=== PATIENT | female | born 1985 | race African-American/Black ===

== ENCOUNTER 2016-09-07 15:21 | Emergency (ER) | payer OTHER, SELFPAY ==
--- NOTE | 2016-09-07 16:51 | ERRECORD ---
[facility] EMERGENCY RECORD HPI FALL (16:38 PMYE) CHIEF COMPLAINT: Patient presents for evaluation of fall. HISTORIAN: History provided by patient. LOCATION: Symptoms are localized, most severe to left lower extremity. QUALITY: Pain is sharp in nature. TIME COURSE: Sudden onset of symptoms. SEVERITY: Maximum severity of symptoms mild, Currently symptoms are mild. ASSOCIATED WITH: 30 y/o F s/p fall in a driveway in which she landed on her left side. pain from prox tib to great toe. No injury to head or neck. EXACERBATED BY: Patient's condition exacerbated by nothing. RELIEVED BY: Patient's condition relieved by nothing. ROS (16:41 PMYE) CONSTITUTIONAL: Negative constitutional review of systems, Historian denies chills, denies fatigue, denies fever. EYES: Negative eye review of systems, Historian denies eye pain, denies eye redness, denies eye discharge. ENT: Negative ears, nose, throat review of systems, Historian denies dysphasia, denies epistaxis, denies otalgia, denies sore throat. CARDIOVASCULAR: Negative cardiovascular review of systems, Historian denies chest pain, denies dyspnea on exertion, denies syncope, denies palpitations. RESPIRATORY: Negative respiratory review of systems, Historian denies cough, denies shortness of breath, denies wheezing. GI: Negative gastrointestinal review of systems, Historian denies abdominal pain, denies constipation, denies diarrhea, denies nausea, denies vomiting. GENITOURINARY FEMALE: Negative genitourinary review of systems, Historian denies dysuria, denies urgency, denies vaginal bleeding, denies vaginal discharge. MUSCULOSKELETAL: Historian denies arthralgias, denies myalgias. lower extremity pain. SKIN: Negative skin review of systems, Historian denies rash, denies skin changes. NEUROLOGIC: Negative neurologic review of systems, Historian denies confusion, denies focal weakness, denies headache. PSYCHIATRIC: Negative psychiatric review of systems. PAST MEDICAL HISTORY (15:41 BDON) MEDICAL HISTORY: Notes: Deep vein Thrombosis, intersitital cystitis,, Flu vaccine up to date, Tetanus not up to date, Past medical history includes gastrointestinal disease, gastroesophageal reflux disease, Past medical history includes pulmonary disease, asthma. FEMALE SURGICAL HISTORY: Polyps, Surgical history of section. PSYCHIATRIC HISTORY: Psychiatric history includes, &a-1R&a+25V*p+0X*i9893W*c202B*c15G*c2P*p-0X&a-25V&a+1R Name: Rosibel Vera : 1985 F30 MedRec: [id number] AcctNum: [id number] Prepared: Marleny Sep 07, 2016 20:09 by Interface Page 1 of 3 pMD [facility] EMERGENCY RECORD anxiety, depression. SOCIAL HISTORY: Patient denies alcohol use, Patient denies drug use, Patient has no smoking history, Lives at home, with family. KNOWN ALLERGIES Ceftin: Reaction: Rash iodine topical solution latex gloves sulfur Toradol: - halluniations CURRENT MEDICATIONS montelukast: TABLET : Strength - 10 mg : ORAL Patient Dose: once a day. (15:31 BDON) cetirizine: TABLET : Strength - 10 mg : ORAL Patient Dose: once a day (at bedtime). (15:31 BDON) Advair HFA: HFA AEROSOL WITH ADAPTER (GRAM) : Strength - 45 mcg-21 mcg/actuation : INHALATION Patient Dose: Unknown. (15:32 BDON) albuterol sulfate: VIAL, NEBULIZER (ML) : Strength - 1.25 mg/3 mL : INHALATION Patient Dose: Unknown. (15:34 BDON) EPINEPHrine: AUTO-INJECTOR (EA) : Strength - 0.15 mg/0.15 mL (1:1,000) : INJECTION Patient Dose: Unknown. (15:34 BDON) citalopram: TABLET : Strength - 10 mg : ORAL Patient Dose: once a day. (15:35 BDON) Xarelto: TABLET : Strength - 20 mg : ORAL Patient Dose: once a day. (15:36 BDON) Elmiron: CAPSULE : Strength - 100 mg : ORAL Patient Dose: 3 times a day. (15:36 BDON) Vesicare: TABLET : Strength - 5 mg : ORAL Patient Dose: once a day. (15:37 BDON) levocetirizine: TABLET : Strength - 5 mg : ORAL Patient Dose: once a day. (15:37 BDON) VITAL SIGNS VITAL SIGNS: BP: 119/78, Pulse: 69, Resp: 17, Temp: 98.1 (Oral), Pain: 10, O2 sat: 99, Time: 09/07/2016 15:26. (15:26 BDON) Pulse: 84, Resp: 18, Pain: 5, Time: 09/07/2016 16:47. (16:47 BDON) PHYSICAL EXAM (16:41 PMYE) &a-1R&a+25V*p+0X*p0690O*c202B*c15G*c2P*p-0X&a-25V&a+1R Name: Rosibel Vera : 1985 F30 MedRec: [id number] AcctNum: [id number] Prepared: Marleny Sep 07, 2016 20:09 by Interface Page 2 of 3 pMD [facility] EMERGENCY RECORD CONSTITUTIONAL: Vital Signs Reviewed, Patient afebrile, Pulse normal, Blood pressure normal, Respiratory rate normal, Patient appears non toxic. HEAD: Head exam included findings of head atraumatic, normocephalic. EYES: Eye exam included findings of eyelids normal to inspection, Pupils equally round and reactive to light, Extraocular muscles intact. ENT: ENT exam normal, Pharynx exam normal, Uvula exam normal, Tonsil exam normal. NECK: Neck exam normal. RESPIRATORY CHEST: Respiratory and chest exam normal, Breath sounds clear, No wheezing, No rales. ABDOMEN FEMALE: Abdominal exam normal, Abdominal exam included findings of abdomen nontender, Bowel sounds normal. BACK: Back exam normal. LOWER EXTREMITY: Palp pain to prox tibia. Lat left ankle and dorsum of foot. No obvious injury noted. NEURO: Neuro exam normal, [place] coma scale 15, Neuro exam findings include patient oriented to person, place and time, Speech normal. SKIN: Skin exam normal. PSYCHIATRIC: Psychiatric exam normal, Psychiatric exam included findings of patient oriented to person place and time, Normal affect. DOCTOR NOTES TEXT: X-rays negative. Pt w/ likely soft tissue injury from fall. Will f/u w/ PCP. (16:42 PMYE) X rays negative. appropriate for DC w/ PCP f/u. (18:46 PMYE) PROBLEM LIST No recorded problems DIAGNOSIS (16:44 PMYE) FINAL: PRIMARY: fall, ADDITIONAL: lower extremity contusion. PRESCRIPTION No recorded prescriptions DISPOSITION PATIENT: Disposition Type: Discharge, Disposition: *Discharge Home, Condition: Good. (16:44 PMYE) Patient left the department. (16:52 BDON) Hutchinson: BDON=GERRY Cunha, Mona PMYE=DO Silva Paul &a-1R&a+25V*p+0X*u5304R*c202B*c15G*c2P*p-0X&a-25V&a+1R Name: Rosibel Vera : 1985 F30 MedRec: [id number] AcctNum: [id number] Prepared: Marleny Sep 07, 2016 20:09 by Interface Page 3 of 3 pMD MTDD
--- NOTE | 2016-09-07 16:57 | PICIS ---
[facility] EMERGENCY RECORD TRIAGE (15:28 BDON) TRIAGE NOTES: Fell on left side, pain knee into 1st toe. (15:28 BDON) PATIENT: AGE: 30, GENDER: female, : Thu1985, TIME OF GREET: Sun Sep 07, 2016 15:22, ECODE BILLING MAP: [facility], Zip Code: [address], KG WEIGHT: 92.99, PHONE: , , , PERSON ID: [id number], PCP: out of town. (15:28 BDON) NAME: Chuy Rosibelthomas Grant (15:54) COMPLAINT: Fall/Left Leg Pain. (15:37 EPIE) ADMISSION: URGENCY: 3 Urgent, ADMISSION SOURCE: Home, TRANSPORT: Walk-in, BED: TRIAGE. (15:28 BDON) ASSESSMENT: Assessment: Fell while walking, slipped on plate in parking lot, slid on payment placing all weight on left side. Pain below knee into left great toe, Symptoms began 30 min ago. (15:41 BDON) PAIN: Pain is constant. (15:41 BDON) LMP: Last menstrual period: 08/12/2016. (15:41 BDON) TREATMENTS IN PROGRESS: Treatments given Prehospital: none. (15:41 BDON) PROVIDERS: TRIAGE NURSE: Mona Cunha RN. (15:28 BDON) VITAL SIGNS: BP 119/78, Pulse 69, Resp 17, Temp 98.1, (Oral), Pain 10, O2 Sat 99, Time 09/07/2016 15:26. (15:26 BDON) KNOWN ALLERGIES Ceftin: Reaction: Rash iodine topical solution latex gloves sulfur Toradol: - halluniations CURRENT MEDICATIONS montelukast: TABLET : Strength - 10 mg : ORAL Patient Dose: once a day. (15:31 BDON) cetirizine: TABLET : Strength - 10 mg : ORAL Patient Dose: once a day (at bedtime). (15:31 BDON) Advair HFA: HFA AEROSOL WITH ADAPTER (GRAM) : Strength - 45 mcg-21 mcg/actuation : INHALATION Patient Dose: Unknown. (15:32 BDON) albuterol sulfate: VIAL, NEBULIZER (ML) : Strength - 1.25 mg/3 mL : INHALATION Patient Dose: Unknown. (15:34 BDON) EPINEPHrine: AUTO-INJECTOR (EA) : Strength - 0.15 mg/0.15 mL (1:1,000) : INJECTION Patient Dose: Unknown. (15:34 BDON) citalopram: TABLET : Strength - 10 mg : ORAL &a-1R&a+25V*p+0X*i0151Q*c202B*c15G*c2P*p-0X&a-25V&a+1R Name: Rosibel Vear : 1985 F30 MedRec: [id number] AcctNum: [id number] Prepared: Marleny Sep 07, 2016 20:15 by Interface Page 1 of 5 pMD [facility] EMERGENCY RECORD Patient Dose: once a day. (15:35 BDON) Xarelto: TABLET : Strength - 20 mg : ORAL Patient Dose: once a day. (15:36 BDON) Elmiron: CAPSULE : Strength - 100 mg : ORAL Patient Dose: 3 times a day. (15:36 BDON) Vesicare: TABLET : Strength - 5 mg : ORAL Patient Dose: once a day. (15:37 BDON) levocetirizine: TABLET : Strength - 5 mg : ORAL Patient Dose: once a day. (15:37 BDON) VITAL SIGNS VITAL SIGNS: BP: 119/78, Pulse: 69, Resp: 17, Temp: 98.1 (Oral), Pain: 10, O2 sat: 99, Time: 09/07/2016 15:26. (15:26 BDON) Pulse: 84, Resp: 18, Pain: 5, Time: 09/07/2016 16:47. (16:47 BDON) NURSING ASSESSMENT: EXTREMITY LOWER (15:47 BDON) CONSTITUTIONAL: Patient arrives, via hospital wheelchair, History obtained from patient, Patient appears, uncomfortable, Patient cooperative, Patient alert, Oriented to person, place and time, Skin warm, Skin dry, Skin normal in color. PAIN: to the left lower leg. LEFT LOWER EXTREMITY: Left lower extremity assessment findings include capillary refill less than 2 seconds, Skin color normal, Skin temperature warm, Distal sensation intact, Inspection findings include no swelling, Notes: discoloration to great toe tender to palpate lower leg. SAFETY: Cart/Stretcher in lowest position, Hospital ID band on, Patient in view of the nursing station. NURSING PROCEDURE: DISCHARGE NOTE (16:47 BDON) DISCHARGE: Patient discharged to home, ambulating without assistance, driving self, Summary of Care printed/ provided, Patient requested and was provided an electronic copy of Discharge Instructions, Transition record given to patient, Discharge instructions given to patient, Simple or moderate discharge teaching performed, Patient treated and evaluated by physician. VITAL SIGNS: Pulse: 84, Resp: 18, Pain: 5. NURSING PROCEDURE: NURSE NOTES NURSES NOTES: Notes: Remains in Imaging Department. (16:14 BDON) Patient is awaiting results, Notes: Return to room. (16:18 BDON) NURSING PROCEDURE: TRANSPORT TO TESTS (16:44 KPEA) TRANSPORT TO TESTS: Patient transported to x-ray, Accompanied by &a-1R&a+25V*p+0X*i9339T*c202B*c15G*c2P*p-0X&a-25V&a+1R Name: Chuy Rosibel R : 1985 F30 MedRec: [id number] AcctNum: [id number] Prepared: Marleny Sep 07, 2016 20:15 by Interface Page 2 of 5 pMD [facility] EMERGENCY RECORD x-ray unit technician, Patient arrived in location at 1551, Patient departed location at 1615. ORDER DETAILS Order Name: XR Ankle Lt 3 View STANDARD, Status: Active, Time: 15:47 09/07/2016, User: FRANCESCA, - Ordered for: DO Silva Paul, - Entered by: DO Silva Paul - Marleny Sep 07, 2016 15:47, - Quantity: 1, Order Name: XR Foot Lt 3 View STANDARD, Status: Active, Time: 15:47 09/07/2016, User: FRANCESCA, - Ordered for: DO Silva Paul, - Entered by: DO Silva Paul - Sun Sep 07, 2016 15:47, - Quantity: 1, Order Name: XR Knee Lt 2 View, Status: Active, Time: 16:32 09/07/2016, User: FRANCESCA, - Ordered for: DO Silva Paul, - Entered by: DO Silva Paul - Marleny Sep 07, 2016 16:32, - Quantity: 1, Order Name: XR Tib Fib Lt Leg 2 View, Status: Active, Time: 15:47 09/07/2016, User: PMYE, - Ordered for: DO Silva Paul, - Entered by: DO Silva Paul - Marleny Sep 07, 2016 15:47, - Quantity: 1. HPI FALL (16:38 PMYE) CHIEF COMPLAINT: Patient presents for evaluation of fall. HISTORIAN: History provided by patient. LOCATION: Symptoms are localized, most severe to left lower extremity. QUALITY: Pain is sharp in nature. TIME COURSE: Sudden onset of symptoms. SEVERITY: Maximum severity of symptoms mild, Currently symptoms are mild. ASSOCIATED WITH: 30 y/o F s/p fall in a driveway in which she landed on her left side. pain from prox tib to great toe. No injury to head or neck. EXACERBATED BY: Patient's condition exacerbated by nothing. RELIEVED BY: Patient's condition relieved by nothing. ROS (16:41 PMYE) CONSTITUTIONAL: Negative constitutional review of systems, Historian denies chills, denies fatigue, denies fever. EYES: Negative eye review of systems, Historian denies eye pain, denies eye redness, denies eye discharge. ENT: Negative ears, nose, throat review of systems, Historian denies dysphasia, denies epistaxis, denies otalgia, denies sore throat. CARDIOVASCULAR: Negative cardiovascular review of systems, Historian denies chest pain, denies dyspnea on exertion, denies &a-1R&a+25V*p+0X*l2847X*c202B*c15G*c2P*p-0X&a-25V&a+1R Name: Vera, Rosibel Garcia : 1985 F30 MedRec: [id number] AcctNum: [id number] Prepared: Marleny Sep 07, 2016 20:15 by Interface Page 3 of 5 pMD [facility] EMERGENCY RECORD syncope, denies palpitations. RESPIRATORY: Negative respiratory review of systems, Historian denies cough, denies shortness of breath, denies wheezing. GI: Negative gastrointestinal review of systems, Historian denies abdominal pain, denies constipation, denies diarrhea, denies nausea, denies vomiting. GENITOURINARY FEMALE: Negative genitourinary review of systems, Historian denies dysuria, denies urgency, denies vaginal bleeding, denies vaginal discharge. MUSCULOSKELETAL: Historian denies arthralgias, denies myalgias. lower extremity pain. SKIN: Negative skin review of systems, Historian denies rash, denies skin changes. NEUROLOGIC: Negative neurologic review of systems, Historian denies confusion, denies focal weakness, denies headache. PSYCHIATRIC: Negative psychiatric review of systems. PAST MEDICAL HISTORY (15:41 BDON) MEDICAL HISTORY: Notes: Deep vein Thrombosis, intersitital cystitis,, Flu vaccine up to date, Tetanus not up to date, Past medical history includes gastrointestinal disease, gastroesophageal reflux disease, Past medical history includes pulmonary disease, asthma. FEMALE SURGICAL HISTORY: Polyps, Surgical history of section. PSYCHIATRIC HISTORY: Psychiatric history includes, anxiety, depression. SOCIAL HISTORY: Patient denies alcohol use, Patient denies drug use, Patient has no smoking history, Lives at home, with family. PHYSICAL EXAM (16:41 PMYE) CONSTITUTIONAL: Vital Signs Reviewed, Patient afebrile, Pulse normal, Blood pressure normal, Respiratory rate normal, Patient appears non toxic. HEAD: Head exam included findings of head atraumatic, normocephalic. EYES: Eye exam included findings of eyelids normal to inspection, Pupils equally round and reactive to light, Extraocular muscles intact. ENT: ENT exam normal, Pharynx exam normal, Uvula exam normal, Tonsil exam normal. NECK: Neck exam normal. RESPIRATORY CHEST: Respiratory and chest exam normal, Breath sounds clear, No wheezing, No rales. ABDOMEN FEMALE: Abdominal exam normal, Abdominal exam included findings of abdomen nontender, Bowel sounds normal. BACK: Back exam normal. LOWER EXTREMITY: Palp pain to prox tibia. Lat left ankle and dorsum of foot. No obvious injury noted. NEURO: Neuro exam normal, [place] coma scale 15, Neuro exam &a-1R&a+25V*p+0X*x2607H*c202B*c15G*c2P*p-0X&a-25V&a+1R Name: Asad Verathomas Garcia : 1985 F30 MedRec: [id number] AcctNum: [id number] Prepared: Marleny Sep 07, 2016 20:15 by Interface Page 4 of 5 pMD [facility] EMERGENCY RECORD findings include patient oriented to person, place and time, Speech normal. SKIN: Skin exam normal. PSYCHIATRIC: Psychiatric exam normal, Psychiatric exam included findings of patient oriented to person place and time, Normal affect. EVENTS TRANSFER: Triage to Emergency Triage. (Marleny Sep 07, 2016 15:28 BDON) Emergency Triage to Emergency Room -04. (15:34 EPIE) Removed from Emergency Emergency Room -04. (16:52 BDON) DOCTOR NOTES TEXT: X-rays negative. Pt w/ likely soft tissue injury from fall. Will f/u w/ PCP. (16:42 PMYE) X rays negative. appropriate for DC w/ PCP f/u. (18:46 PMYE) PROBLEM LIST No recorded problems DIAGNOSIS (16:44 PMYE) FINAL: PRIMARY: fall, ADDITIONAL: lower extremity contusion. DISPOSITION PATIENT: Disposition Type: Discharge, Disposition: *Discharge Home, Condition: Good. (16:44 PMYE) Patient left the department. (16:52 BDON) INSTRUCTION (16:43 PMYE) DISCHARGE: FALL, MECHANICAL, EXTREMITY CONTUSION LOWER. FOLLOWUP: Follow up with Primary Care Physician in 1-2 days. SPECIAL: Follow-up with your PCP. PRESCRIPTION No recorded prescriptions IMAGING (16:51 BDON) *DISCHARGE INSTRUCTIONS RECEIPT: Image captured from scanner. *SUPPLY CHARGE SHEET: Image captured from scanner. ADMIN DIGITAL SIGNATURE: DO Silva Paul. (16:44 PMYE) GERRY Cunha, Mona. (16:52 BDON) DO Silva Paul. (20:03 PMYE) Hutchinson: BDON=GERRY Cunha Bettye EPIE=GERRY Lincoln, Brunilda KPEA=FARIDEH Wheatley Kim PMYE=DO Silva Paul &a-1R&a+25V*p+0X*b1785I*c202B*c15G*c2P*p-0X&a-25V&a+1R Name: Rosibel Vera : 1985 F30 MedRec: [id number] AcctNum: [id number] Prepared: Marleny Sep 07, 2016 20:15 by Interface Page 5 of 5 pMD MTDD
--- NOTE | 2016-09-07 18:08 | RAD ---
THREE VIEWS LEFT FOOT: Indication: Fell on left side with pain in the first toe. Comparison: None. FINDINGS: No acute fracture or subluxation is evident. Lisfranc alignment is preserved. No radiopaque foreig n body is evident. IMPRESSION: No acute osseous abnormality. POS: [facility]
--- NOTE | 2016-09-07 18:11 | RAD ---
RADIOGRAPH LEFT ANKLE THREE VIEWS: History: 29-year-old female with acute traumatic left ankle pain. FINDINGS: Ankle mortise is symmetrical. Talar dome is maintained. There is no fracture or any other osseous abnormality. There is soft tissue edema at the anterior aspect of the ankle. IMPRESSION: 1. Acute, traumatic anterior soft tissue edema. 2. Normal osseous structures. POS: [facility]
--- NOTE | 2016-09-07 18:23 | RAD ---
RADIOGRAPH LEFT LEG TIBIA AND FIBULA TWO VIEWS: History: 30-year-old female with traumatic injury to leg. FINDINGS: No evidence of fracture or any other osseous abnormality of the tibia or fibula. IMPRESSION: Negative. POS: [facility]
--- NOTE | 2016-09-07 18:32 | RAD ---
RADIOGRAPH LEFT KNEE TWO VIEWS: History: Traumatic left knee pain in a 30-year-old female from fall. FINDINGS: There is no fracture or dislocation. The joint spaces are maintained without erosions or osteophyte s. There is a suprapatellar joint effusion of moderate size. IMPRESSION: 1. Suprapatellar joint effusion. 2. No osseous abnormality identified. POS: [facility]
== END 2016-09-07 16:47 | disposition home or self-care (01) ==
LOC: NAV ERS 15:21
DX: S80.12XA Contusion of left lower leg, initial encounter (principal); J45.909 Unspecified asthma, uncomplicated; W18.30XA Fall on same level, unspecified, initial encounter
CPT/HCPCS: 99284

== ENCOUNTER 2016-11-20 22:17 | Emergency (ER) | payer OTHER ==
[2016-11-20] MEDS ORDERED: Metoclopramide HCl 10 MG/2 ML VIAL ONE (22:59)
[2016-11-20] MEDS ORDERED: diphenhydrAMINE HCl 50 MG/ML 1 ML VIAL ONE (22:59)
[2016-11-20] MEDS ORDERED: Ibuprofen 800 MG TAB ONE (22:59)
[2016-11-20] MEDS ORDERED: Sodium Chloride 0.9% 100 ML ONE (23:03)
[2016-11-20 23:15] LABS: Eosinophils 2 % (0-10); Hemoglobin 12.3 g/dL (12.0-16.0); Lymphocytes 56 % (21-51); MDiff Complete? YES; Mean Corpuscular HGB CONC 32.6 g/dL (32.0-36.0); Mean Corpuscular Hemoglobin 26.5 pg (27.0-31.0); Mean Corpuscular Volume 81.2 fl (81.0-99.0); Mean Platelet Volume 7.5 fL (7.4-10.4); Monocytes 7 % (0-10); Neutrophil 35 % (42-75); PLT Morphology Comment Appears Adequate; Platelet Count 251 thou/uL (130-400); RBC Distribution Width 13.6 % (11.5-14.5); RBC Morphology Normal; Red Blood Cell (RBC) Count 4.66 mill/uL (4.20-5.40); White Blood Cell (WBC) Count 6.3 thou/uL (4.8-10.8)
[2016-11-20 23:24] LABS: ALT (SGPT) 17 U/L (0-55); AST (SGOT) 15 U/L (5-34); Alkaline Phosphatase 86 U/L (40-150); Anion Gap 15 mmol/L (10-20); BUN (Urea Nitrogen) 10 mg/dL (7.0-18.7); Bilirubin, Total 0.3 mg/dL (0.2-1.2); Calc. Creatinine Clearance 0 mL/min (70-130); Calcium 9.2 mg/dL (7.8-10.44); Carbon Dioxide 23 mmol/L (22-29); Chloride 108 mmol/L (98-107); Estimated GFR-MDRD 85; Globulin 3.2 g/dL (2.4-3.5); Glucose 90 mg/dL (70-105); Protein, Total 7.2 g/dL (6.0-8.3); Sodium 142 mmol/L (136-145)
== END 2016-11-21 00:44 | disposition home or self-care (01) ==
LOC: NAV ERS 22:17
DX: G43.909 Migraine, unspecified, not intractable, without status migrainosus (principal); K21.9 Gastro-esophageal reflux disease without esophagitis; J45.909 Unspecified asthma, uncomplicated; Z79.899 Other long term (current) drug therapy
CPT/HCPCS: 36415; 80053; 85025; 96365; 96375; J1200; J2765

== ENCOUNTER 2016-12-14 13:18 | Emergency (ER) | payer OTHER ==
[2016-12-14] MEDS ORDERED: Ondansetron ODT 4 MG TAB ONE (13:30)
[2016-12-14 13:47] LABS: Bilirubin Negative (Negative); Blood, Urine Negative (Negative); Clarity Clear (Clear); Glucose, Urine (Dipstick) Negative (Negative); Leukocyte Small (Negative); Nitrite Negative (Negative); Protein, Urine (Dipstick) Negative (Neg-Trace); Specific Gravity, Urine 1.015 (1.005-1.030); Urobilinogen 0.2 mg/dL (0.2-1.0); pH, Urine 7.5 (5.0-9.0)
[2016-12-14 14:04] LABS: RBC/HPF None Seen HPF (0-3); WBC/HPF 0-3 HPF (0-3)
[2016-12-14 14:05] LABS: Bacteria/HPF Rare-Few HPF (None Seen)
== END 2016-12-14 14:06 | disposition home or self-care (01) ==
LOC: NAV ERS 13:18
DX: A08.4 Viral intestinal infection, unspecified (principal); K21.9 Gastro-esophageal reflux disease without esophagitis; J45.909 Unspecified asthma, uncomplicated; F32.9 Major depressive disorder, single episode, unspecified; F41.9 Anxiety disorder, unspecified; Z86.718 Personal history of other venous thrombosis and embolism; Z79.899 Other long term (current) drug therapy; Z79.01 Long term (current) use of anticoagulants; Z79.2 Long term (current) use of antibiotics
CPT/HCPCS: 81003; 81015; 99284; Q0162

== ENCOUNTER 2016-12-24 23:06 | Emergency (ER) | payer OTHER ==
[~2016-12-24 23:06] MED LIST: Iopamidol 370 76% 100 ML VIAL ONE
[2016-12-24] MEDS ORDERED: Sodium Chloride 0.9% 1,000 ML ONE (23:28)
[2016-12-24] MEDS ORDERED: Ondansetron HCl/PF 4 MG/2 ML Vial ONE (23:28)
[2016-12-24 23:46] LABS: PTT 28.3 SEC (22.9-36.1); Prothrombin Time 13.3 SEC (12.0-14.7)
[2016-12-24 23:50] LABS: BHCG - Serum NEGATIVE (NEGATIVE); Pregs Control Bar Appear? YES (CONTROL BAR)
[2016-12-24 23:57] LABS: ALT (SGPT) 40 U/L (8-55); AST (SGOT) 30 U/L (5-34); Alkaline Phosphatase 69 U/L (40-150); Anion Gap 14 mmol/L (10-20); BUN (Urea Nitrogen) 6 mg/dL (7.0-18.7); Bilirubin, Total 0.7 mg/dL (0.2-1.2); Calc. Creatinine Clearance 0 mL/min (70-130); Calcium 9.2 mg/dL (7.8-10.44); Carbon Dioxide 23 mmol/L (22-29); Chloride 105 mmol/L (98-107); Estimated GFR-MDRD Greater than 90; Globulin 3.2 g/dL (2.4-3.5); Glucose 107 mg/dL (70-105); Lipase 14 U/L (8-78); Potassium 4.4 mmol/L (3.5-5.1); Protein, Total 7.2 g/dL (6.0-8.3); Sodium 138 mmol/L (136-145)
[2016-12-25 00:09] LABS: Band 6 % (5-11); Eosinophils 3 % (0-10); Hemoglobin 12.2 g/dL (12.0-16.0); Hypochromia SLIGHT = 6-15 cells (100X) (0-5/hpf); Lymphocytes 29 % (21-51); MDiff Complete? YES; Mean Corpuscular HGB CONC 32.2 g/dL (32.0-36.0); Mean Corpuscular Hemoglobin 25.2 pg (27.0-31.0); Mean Corpuscular Volume 78.1 fl (81.0-99.0); Mean Platelet Volume 7.5 fL (7.4-10.4); Microcytosis SLIGHT = 6-15 cells (100X) (0-5/hpf); Monocytes 2 % (0-10); Neutrophil 55 % (42-75); PLT Morphology Comment Appears Adequate; Platelet Count 205 thou/uL (130-400); RBC Distribution Width 13.5 % (11.5-14.5); Reactive Lymphocytes 5 % (0-10); Red Blood Cell (RBC) Count 4.84 mill/uL (4.20-5.40)
[2016-12-25 00:22] LABS: Bilirubin Negative (Negative); Blood, Urine Moderate (Negative); Clarity Clear (Clear); Glucose, Urine (Dipstick) Negative (Negative); Leukocyte Negative (Negative); Nitrite Negative (Negative); Protein, Urine (Dipstick) Negative (Neg-Trace); Urobilinogen 0.2 mg/dL (0.2-1.0)
[2016-12-25 00:29] LABS: Squamous Epithelial 0-3 HPF (0-3); WBC/HPF None Seen HPF (0-3)
[2016-12-25 00:31] LABS: Bacteria/HPF None Seen HPF (None Seen)
[2016-12-25] MEDS ORDERED: Sodium Chloride 0.9% 1,000 ML ONE (01:04)
[2016-12-25 01:16] LABS: CKMB 1.6 ng/mL (0-6.6); Troponin I Less than 0.010 ng/mL (< 0.028)
--- NOTE | 2016-12-25 08:10 | CT ---
PRELIMINARY REPORT/[facility]/EMERGENCY AFTER HOURS PROCEDURE: EXAM: CT Abdomen and Pelvis With Intravenous Contrast CLINICAL HISTORY: 31 years old, female; Pain and signs and symptoms; Abdominal tenderness; Abdominal pain; Other: Pain in lower abdomen; Prior surgery; Surgery date: Post-operative (0-2 days); Surgery type: Tissue shakeel paula from cervix today; Additional info: Surgery today "removed scarred tissue from cervix" at [facility] today , with chest pain and abdominal pain / not able to urinate yet, no prev, 96ml isovue injected into 20g in left ac TECHNIQUE: Axial computed tomography images of the abdomen and pelvis with intravenous contrast. This CT exam w as performed using one or more of the following dose reduction techniques: automated exposure contro l, adjustment of the mA and/or kV according to patient size, and/or use of iterative reconstruction technique. Coronal and sagittal reformatted images were created and reviewed. CONTRAST: 96 mL of isovue 370 administered intravenously. COMPARISON: No relevant prior studies available. FINDINGS: ABDOMEN: Liver: No acute findings. No mass. Gallbladder and bile ducts: No calcified stones. No ductal dilation. Pancreas: No ductal dilation. No mass. Spleen: No mass. Adrenals: No mass. Kidneys and ureters: No obstructing stones. No hydronephrosis. No solid mass. Stomach and bowel: A few mildly dilated small bowel loops. No evidence of bowel obstruction. Diverti culosis. Appendix: No findings to suggest acute appendicitis. PELVIS: Bladder: No mass. Reproductive: Retroverted uterus. Probable postsurgical changes. ABDOMEN and PELVIS: Intraperitoneal space: Trace pelvic fluid. Mild pneumoperitoneum. Bones/joints: No acute fracture. Soft tissues: Anterior abdominal wall subcutaneous emphysema/postsurgical changes. Vasculature: No acute findings. No abdominal aortic aneurysm. Lymph nodes: No enlarged lymph nodes. IMPRESSION: Mild pneumoperitoneum, probably postsurgical. Other postsurgical changes as above. Clinical correlat ion and followup recommended as indicated. Thank you for allowing us to participate in the care of your patient. Dictated and Authenticated by: Thong Robertson MD 12/25/2016 1:14 AM Central Time ([place] \\T\\ Sudeep) FINAL REPORT CT ABDOMEN AND PELVIS WITH CONTRAST: HISTORY: Recent history, removed scar tissue on the surface [facility] today. Chest pain, abdominal hayes n, unable to urinate. COMPARISON: None. TECHNIQUE: CT of the abdomen and pelvis was performed after the intravenous administration of contrast. FINDINGS: There is low-grade pneumoperitoneum. The patient states she had a recent surgery today. There is hematoma at the expected location of the cervix. The uterus is somewhat homogeneously incr eased in density. The appendix is visualized and is normal. Of note, this is a delayed phase of contrast and there is contrast within the renal collecting syste ms, ureter, and partially filling the urinary bladder which are without filling defect. The aortoiliac contour is normal. The skeleton is unremarkable. IMPRESSION: 1. Low-grade pneumoperitoneum is not an unexpected given recent surgery. 2. Heterogeneously increased density of the uterus could be a normal variant versus having some ind welling endometrial hemorrhage. A pelvic ultrasound can be obtained. 3. Normal appearance of the renal collecting systems bilaterally. 4. Normal appendix. POS: [facility]
--- NOTE | 2016-12-25 09:31 | CT ---
PRELIMINARY REPORT/[facility]/EMERGENCY AFTER HOURS PROCEDURE: EXAM: CT Angiography Chest With Intravenous Contrast CLINICAL HISTORY: 31 years old, female; Pain; Chest pain; Type not specified; Additional info: Surgery today "removed scarred tissue from cervix" at [place] today , with chest pain and abdominal pain / not able to urinate yet, no prev, 96ml isovue injected into 20g in left ac TECHNIQUE: Axial computed tomographic angiography images of the chest with intravenous contrast using pulmonary embolism protocol. This CT exam was performed using one or more of the following dose reduction vidal hniques: automated exposure control, adjustment of the mA and/or kV according to patient size, and/o r use of iterative reconstruction technique. Coronal reformatted images were created and reviewed. CONTRAST: 96 mL of isovue 370 administered intravenously. COMPARISON: No relevant prior studies available. FINDINGS: Pulmonary arteries: No acute findings. No evidence of pulmonary embolism. Aorta: No acute findings. No thoracic aortic aneurysm. Lungs: Patchy linear and mild dependent atelectasis. No mass. Pleural space: No acute findings. No significant effusion. No pneumothorax. Heart: Mild cardiomegaly. No pericardial effusion. No evidence of RV dysfunction. Mediastinum: Anterior mediastinal probably residual thymic tissue. Bones/joints: No acute fracture. No dislocation. Soft tissues: No acute findings. Lymph nodes: No acute findings. No enlarged lymph nodes. Upper abdomen: Refer to same day.CT abdomen. IMPRESSION: No evidence of pulmonary embolism. Mild atelectasis. Thank you for allowing us to participate in the care of your patient. Dictated and Authenticated by: Thong Robertson MD 12/25/2016 1:06 AM Central Time ([place] \\T\\ Sudeep) FINAL REPORT CT ANGIO CHEST WITH CONTRAST: Date: 12/25/16 HISTORY: Recent removal of scar tissue on the cervix. Comes to hospital today with chest pain and abdominal p ain. Not able to urinate. COMPARISON: None. TECHNIQUE: CT angiogram of the chest was performed after intravenous administration of contrast. 3D rendering i s provided. FINDINGS: No segmental pulmonary arterial defect. No cardiomegaly. Pulmonary trunk size is enlarged measuring 31 mm. No adenopathy. Mediastinum is unremarkable. There is mild atelectasis in the lung bases. Low grade pneumoperitoneum . Skeleton is unremarkable. IMPRESSION: 1. Segmental pulmonary embolism. 2. Mild atelectasis in the lung bases. 3. No acute intraabdominal abnormality. 4. Low grade pneumoperitoneum. Recommend correlation with surgical history. POS: BONNIE
== END 2016-12-25 02:00 | disposition home or self-care (01) ==
LOC: NAV ERS 23:06
DX: R07.9 Chest pain, unspecified (principal); K21.9 Gastro-esophageal reflux disease without esophagitis; J45.909 Unspecified asthma, uncomplicated; F41.9 Anxiety disorder, unspecified; F32.9 Major depressive disorder, single episode, unspecified; Z86.718 Personal history of other venous thrombosis and embolism; Z79.891 Long term (current) use of opiate analgesic; Z79.899 Other long term (current) drug therapy; Z79.2 Long term (current) use of antibiotics; Z79.01 Long term (current) use of anticoagulants
CPT/HCPCS: 71275; 74177; 80053; 81003; 81015; 82553; 83690; 84484; 84703; 85025; 85610; 85730; 93005; 94760; 96361; 96374; 96375; J2270; J2405; J7050

== ENCOUNTER 2017-01-24 02:49 | Emergency (ER) | payer OTHER ==
[2017-01-24] MEDS ORDERED: Ondansetron ODT 4 MG TAB ONE (03:15)
== END 2017-01-24 03:40 | disposition home or self-care (01) ==
LOC: NAV ERS 02:49
DX: S46.811A Strain of other muscles, fascia and tendons at shoulder and upper arm level, right arm, initial encounter (principal); S29.011A Strain of muscle and tendon of front wall of thorax, initial encounter; F41.9 Anxiety disorder, unspecified; F32.9 Major depressive disorder, single episode, unspecified; K21.9 Gastro-esophageal reflux disease without esophagitis; J45.909 Unspecified asthma, uncomplicated; Z79.899 Other long term (current) drug therapy; X50.0XXA Overexertion from strenuous movement or load, initial encounter
CPT/HCPCS: 99283; Q0162

== ENCOUNTER 2017-01-29 19:11 | Emergency (ER) | payer OTHER ==
--- NOTE | 2017-01-29 20:57 | RAD ---
LEFT HIP TWO VIEWS: 01/29/17 HISTORY: Patient slipped in bathtub, hip pain. There is no signs of fracture or dislocation. IMPRESSION: Negative left hip. POS: BONNIE
--- NOTE | 2017-01-29 21:00 | RAD ---
LUMBAR SPINE SERIES THREE VIEWS: 01/29/17 HISTORY: Lower back pain. Vertebral bodies are normal in height. Disc spaces are well preserved. Pedicles are intact. No spond ylolisthesis. IMPRESSION: Unremarkable lumbar spine series. POS: BONNIE
[2017-01-29] MEDS ORDERED: Cyclobenzaprine 10 MG TAB ONE (21:36)
== END 2017-01-29 21:40 | disposition home or self-care (01) ==
LOC: NAV ERS 19:11
DX: S70.02XA Contusion of left hip, initial encounter (principal); M54.5 Low back pain; J45.909 Unspecified asthma, uncomplicated; F41.9 Anxiety disorder, unspecified; F32.9 Major depressive disorder, single episode, unspecified; Z79.899 Other long term (current) drug therapy; Z79.01 Long term (current) use of anticoagulants; W19.XXXA Unspecified fall, initial encounter
CPT/HCPCS: 72100

== ENCOUNTER 2017-03-11 11:53 | Emergency (ER) | payer OTHER | END 2017-03-11 12:22 | disposition home or self-care (01) | LOC: NAV ERS 11:53 | DX: H66.91 Otitis media, unspecified, right ear (principal); J45.909 Unspecified asthma, uncomplicated; F41.9 Anxiety disorder, unspecified; F32.9 Major depressive disorder, single episode, unspecified; Z79.899 Other long term (current) drug therapy | CPT/HCPCS: 99282 ==

== ENCOUNTER 2017-08-01 22:00 | Emergency (ER) | payer OTHER ==
[2017-08-01 22:19] LABS: Bilirubin Negative (Negative); Blood, Urine Negative (Negative); Clarity Clear (Clear); Glucose, Urine (Dipstick) Negative (Negative); Leukocyte Negative (Negative); Nitrite Negative (Negative); Pregnancy Test - Urine (BHCG) Negative (Negative); Pregu Control Background? CLEAR/WHITE (CLR/WHITE); Pregu Control Bar Appear? YES (CONTROL BAR); Protein, Urine (Dipstick) Negative (Neg-Trace); Urobilinogen 0.2 mg/dL (0.2-1.0)
[2017-08-01] MEDS ORDERED: Ibuprofen 800 MG TAB ONE (22:20)
[2017-08-01] MEDS ORDERED: Ondansetron ODT 4 MG TAB ONE (22:20)
[2017-08-01] MEDS ORDERED: Ondansetron HCl/PF 4 MG/2 ML Vial ONE (22:22)
[2017-08-01 22:50] LABS: Eosinophils 3 % (0-10); Hemoglobin 13.2 g/dL (12.0-16.0); Lymphocytes 62 % (21-51); MDiff Complete? YES; Mean Corpuscular HGB CONC 31.4 g/dL (32.0-36.0); Mean Corpuscular Hemoglobin 25.6 pg (27.0-31.0); Mean Corpuscular Volume 81.5 fl (81.0-99.0); Mean Platelet Volume 7.5 fL (7.4-10.4); Monocytes 6 % (0-10); Neutrophil 29 % (42-75); PLT Morphology Comment Appears Adequate; Platelet Count 129 thou/uL (130-400); RBC Distribution Width 14.2 % (11.5-14.5); RBC Morphology Normal; Red Blood Cell (RBC) Count 5.17 mill/uL (4.20-5.40); White Blood Cell (WBC) Count 6.2 thou/uL (4.8-10.8)
[2017-08-01 22:58] LABS: ALT (SGPT) 18 U/L (8-55); AST (SGOT) 20 U/L (5-34); Albumin 4.1 g/dL (3.5-5.0); Alkaline Phosphatase 77 U/L (40-150); Anion Gap 13 mmol/L (10-20); BUN (Urea Nitrogen) 11 mg/dL (7.0-18.7); Bilirubin, Total 0.5 mg/dL (0.2-1.2); Calc. Creatinine Clearance 0 mL/min (70-130); Calcium 9.7 mg/dL (7.8-10.44); Carbon Dioxide 23 mmol/L (22-29); Chloride 106 mmol/L (98-107); Estimated GFR-MDRD Greater than 90; Globulin 3.6 g/dL (2.4-3.5); Glucose 82 mg/dL (70-105); Potassium 4.3 mmol/L (3.5-5.1); Protein, Total 7.7 g/dL (6.0-8.3); Sodium 138 mmol/L (136-145)
== END 2017-08-01 23:20 | disposition home or self-care (01) ==
LOC: NAV ERS 22:00
DX: B34.9 Viral infection, unspecified (principal); M54.5 Low back pain; J45.909 Unspecified asthma, uncomplicated; F41.9 Anxiety disorder, unspecified; F32.9 Major depressive disorder, single episode, unspecified; F17.210 Nicotine dependence, cigarettes, uncomplicated; Z79.01 Long term (current) use of anticoagulants; Z79.899 Other long term (current) drug therapy
CPT/HCPCS: 36415; 80053; 81003; 81025; 85025; 87086; 96374; J2405; Q0162

== ENCOUNTER 2017-11-03 20:06 | Emergency (ER) | payer OTHER ==
[2017-11-03] MEDS ORDERED: Acetaminophen/Codeine 30-300mg Tablet ONE (21:06)
[2017-11-03] MEDS ORDERED: Ondansetron ODT 4 MG TAB ONE (21:08)
== END 2017-11-03 21:20 | disposition home or self-care (01) ==
LOC: NAV ERS 20:06
DX: G43.909 Migraine, unspecified, not intractable, without status migrainosus (principal); J45.909 Unspecified asthma, uncomplicated; F41.9 Anxiety disorder, unspecified; F32.9 Major depressive disorder, single episode, unspecified; F17.210 Nicotine dependence, cigarettes, uncomplicated; Z79.899 Other long term (current) drug therapy; Z79.01 Long term (current) use of anticoagulants
CPT/HCPCS: 99283; Q0162